=== PATIENT | male | born 1990 | race Caucasian/White ===

== ENCOUNTER 2018-01-02 12:27 | Observation (INO) | payer OTHER ==
[~2018-01-02] VITALS: Ht 167.6 cm; Wt 70.0 kg
[2018-01-02] MEDS ORDERED: FENTANYL CITRATE INJ 50 MCG/1 ML 2 ML VIAL ONE ×2 (12:37→15:18)
[2018-01-02 13:01] LABS: BASO % 0.1 %; BASO ABS # 0.01 K/uL (0-0.2); EOS % 0.7 %; EOS ABS # 0.13 K/uL (0-0.5); HEMATOCRIT 40.1 % (42-52); HEMOGLOBIN 14.2 g/dL (14.0-18.0); IG# 0.08 K/uL (0.00-0.02); LYMPH % 9.5 %; LYMPH ABS # 1.79 K/uL (1.2-3.4); MEAN CELL VOLUME 87.2 fL (80-100); MEAN CORPUSCULAR HEMOGLOBIN 30.9 pg (25-34); MEAN CORPUSCULAR HGB CONC 35.4 g/dl (32-36); MEAN PLATELET VOLUME 11.3 fL (7.4-10.4); MONO % 1.5 %; MONO ABS # 0.28 K/uL (0.11-0.59); NEUT % 87.8 %; NEUT ABS # 16.52 K/uL (1.4-6.5); PLATELET COUNT 240 K/uL (130-400); RED CELL DISTRIBUTION WIDTH CV 12.6 % (11.5-14.5); RED CELL DISTRIBUTION WIDTH SD 40.5 fL (36.4-46.3); WHITE BLOOD COUNT 18.81 K/uL (4.8-10.8)
--- NOTE | 2018-01-02 13:06 | DIAGNOSTIC IMAGING REPORT ---
R TIBIA/FIBULA 2 VIEWS ROUTINE CLINICAL HISTORY: Right lower leg pain COMPARISON: None. DISCUSSION: There is a comminuted fracture involving the distal one third of the fibula. There is 9 mm of maximal fracture fragment distraction. There is disruption of the ankle mortise with medial ankle mortise widening. Tiny avulsion fragments are visualized the level of the medial malleolus. IMPRESSION: 1. Comminuted fracture involving the distal one third of the fibula 2. Widening of the medial ankle mortise 3. Tiny chip/avulsion fragments adjacent to the medial malleolus Electronically signed by: Kj Leslie M.D. 01/02/2018 1:05 PM Dictated Date/Time: 01/02/2018 1:03 PM
--- NOTE | 2018-01-02 13:06 | DIAGNOSTIC IMAGING REPORT ---
R ANKLE MIN 3 VIEWS ROUTINE CLINICAL HISTORY: 27 years-old Male presenting with R ANKLE PAIN . TECHNIQUE: Frontal, mortise, and lateral views of the right ankle were obtained. COMPARISON: None. FINDINGS: Spiral fracture of the distal fibular metaphysis above the level of the syndesmosis. There is less than one half shaft width lateral displacement of the distal fracture fragment. There is also mild apex anterior angulation. There is widening of the syndesmosis as well as the medial clear space. A small ossific fragment is noted on lateral view projecting over the anterior ankle mortise. A small avulsion fracture fragment is difficult to exclude. There is also calcification along the medial clear space that may represent tiny ossific fragments. No advanced degenerative change. Diffuse soft tissue swelling greatest over the medial malleolus. IMPRESSION: Mildly displaced and angulated Guevara C fibular fracture (pronation external rotation stage III or stage IV injury) with medial ligamentous rupture. No evidence of a medial malleolus or posterior malleolus fracture. Posterior ligamentous injury cannot be excluded. Electronically signed by: Asa Mcgowan M.D. 01/02/2018 1:05 PM Dictated Date/Time: 01/02/2018 1:00 PM
--- NOTE | 2018-01-02 13:08 | DIAGNOSTIC IMAGING REPORT ---
R FOOT MIN 3 VIEWS ROUTINE CLINICAL HISTORY: R FOOT DISLOCATION COMPARISON: None. DISCUSSION: The foot specifically shows no evidence for acute bony pathology. There is comminuted fracture the distal fibula. Ankle mortise appears disrupted. There is no evidence for soft tissue swelling. IMPRESSION: 1. No acute process specifically of the foot. 2. Probable ankle dislocation and distal fibular fracture. The above report was generated using voice recognition software. It may contain grammatical, syntax or spelling errors. Electronically signed by: Feliberto Jacobsen M.D. 01/02/2018 1:07 PM Dictated Date/Time: 01/02/2018 1:06 PM
[2018-01-02 13:24] LABS: ALBUMIN 4.3 gm/dl (3.4-5.0); CALCIUM 8.9 mg/dl (8.5-10.1); CREATININE 1.44 mg/dl (0.60-1.40); POTASSIUM 3.3 mmol/L (3.5-5.1)
[2018-01-02 13:27] LABS: TOTAL PROTEIN 7.6 gm/dl (6.4-8.2)
[2018-01-02] MEDS ORDERED: MoRPHine SULFATE 4 MG/ML 1 ML CARP\\VIAL IV STA (14:18)
[2018-01-02] MEDS ORDERED: MIDAZOLAM HCL 1 MG/ML 2ML VIAL ONE (14:58)
[2018-01-02] MEDS ORDERED: SODIUM CHLORIDE 0.9% 1000ML 1,000 ML IV STA (14:58)
[2018-01-02 14:59] VITALS: O2SAT 99
[2018-01-02] MEDS ORDERED: ONDANSETRON INJ 2 MG/ML 2 ML VIAL IV PRN ×3 (15:00→17:15)
[2018-01-02] MEDS ORDERED: BUPIVACAINE/EPINEPHRINE 0.5% MPF 1:200,000 30 ML VIAL ONE (15:17)
[2018-01-02] MEDS ORDERED: EpHEDrine SULFATE INJ 50 MG/ML AMP IV PRN (15:30)
[2018-01-02] MEDS ORDERED: CLINDAMYCIN IV 900 MG in DEXTROSE 5% 100ML 100 ML IV SCH (15:30)
[2018-01-02] MEDS ORDERED: ATROPINE SULFATE 0.1 MG/ML 5ML SYR IV PRN (15:30)
[2018-01-02] MEDS ORDERED: HYDROmorphone INJ 1 MG/ML SYR IV PRN (15:30)
[2018-01-02] MEDS ORDERED: IV FLUIDS COMPLETED PRN ×2 (15:45→18:15)
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
[2018-01-02] MEDS ORDERED: HYDROmorphone INJ 2 MG/ML SYR/VIAL ONE (15:51)
[2018-01-02] MEDS ORDERED: ROCURONIUM BROMIDE 10 MG/ML 5 ML VIAL ONE (16:10)
[2018-01-02] MEDS ORDERED: PROPOFOL IV EMULSION 10 MG/ML 20 ML VIAL ONE ×2 (16:10→16:58)
[2018-01-02] MEDS ORDERED: SUCCINYLCHOLINE CHLORIDE 20 MG/ML 10 ML VIAL IV ONE (16:10)
[2018-01-02] MEDS ORDERED: DEXAMETHASONE SOD INJ 4 MG/ML VIAL ONE (16:10)
[2018-01-02] MEDS ORDERED: LIDOCAINE HCL 2% 2 ML VIAL (20MG/ML) ONE (16:10)
[2018-01-02] MEDS ORDERED: ONDANSETRON INJ 2 MG/ML 2 ML VIAL ONE (16:10)
[2018-01-02] MEDS ORDERED: BUPIVACAINE/EPINEPHRINE 0.5% MPF 1:200,000 10 ML VIAL INJ ONE (17:03)
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
--- NOTE | 2018-01-02 17:06 | [facility] Post Operative Brief Note ---
Immediate Operative Summary Operative Date January 02, 2018. Pre-Operative Diagnosis Subluxated Right Ankle Fracture Dislocation Post-Operative Diagnosis Subluxated Right Ankle Fracture Dislocation Procedure(s) Performed Open Reduction Internal Fixation Right Ankle Fracture Surgeon Dr. Martinez Controls Technician Surgeon(s) YESSICA Camargo Estimated Blood Loss 1 ml Findings Consistent with Post-Op Diagnosis Specimens none per surgeon Drains None Anesthesia Type General Complication(s) none Disposition Accompanied Pt To Recover: no Overlapping Procedure I was immediately available: during the entire case
--- NOTE | 2018-01-02 17:08 | [facility] Operative Report ---
Operative Report Operative Date January 02, 2018. Pre-Operative Diagnosis Subluxated Right Ankle Fracture Dislocation Post-Operative Diagnosis Subluxated Right Ankle Fracture Dislocation Procedure(s) Performed Open Reduction Internal Fixation Right Ankle Fracture Surgeon Dr. Martinez [place] Surgeon(s) YESSICA Camargo Estimated Blood Loss 1 ml Specimens none per surgeon Drains None Anesthesia Type General Complication(s) none Disposition no Description of Procedure I was present during entire case . Please see Dr. Martinez procedure note for specifics. I attest to the content of the Intraoperative Record and any orders documented therein. Any exceptions are noted below.
[2018-01-02] MEDS ORDERED: VANCOMYCIN IV 0 MG in SODIUM CHLORIDE 0.9% 500ML 500 ML IV SCH (17:15)
[2018-01-02] MEDS ORDERED: NO NSAIDS SCH (17:15)
[2018-01-02] MEDS ORDERED: MAGNESIUM HYDROXIDE SUSP 30 ML UDC PO PRN (17:15)
[2018-01-02] MEDS ORDERED: ALUMINUM/MAGNESIUM/SIMETH (MAALOX MAX) 30 ML UDC PO PRN (17:15)
[2018-01-02] MEDS ORDERED: VANCOMYCIN CONSULT ACTIVE PRN (17:15)
[2018-01-02] MEDS ORDERED: DiphenhydrAMINE HCL 50 MG/ML VIAL IV PRN (17:15)
[2018-01-02] MEDS ORDERED: METOCLOPRAMIDE HCL INJ 5 MG/ML 2 ML VIAL IV PRN (17:15)
--- NOTE | 2018-01-02 17:19 | Discharge Instructions ---
Discharge Instructions Date of Service January 02, 2018. Admission Reason for Admission: R Ankle Pain, Dislocation, Deformity Discharge Discharge Diagnosis / Problem: Right ankle fracture/dislocation Discharge Goals Goal(s): Decrease discomfort, Improve function, Increase independence Activity Recommendations Activity Limitations: as noted below Lifting Limitations: until after follow-up appointment Exercise/Sports Limitations: until after follow-up appointment May Resume Sexual Activity: when tolerated Shower/Bathe: tomorrow, keep incision dry Driving or Machine Use: No driving until cleared by orthpedic specialist Weightbearing Status: Right non-weightbearing (Crutches for ambulatory aide) . Instructions / Follow-Up Instructions / Follow-Up DIET: * Resume previous diet. MEDICATIONS: * Please take your prescriptions as instructed at your pre-op appointment and/ or see medication discharge instructions listed above. * If concerns develop, call your physician's office at . SPECIAL CARE INSTRUCTIONS: * Ice/Elevate as instructed. * Keep dressing clean, dry, intact. * Your surgical extremity may be discolored due to prepping agents used on the skin. A bluish-green tint is a normal variant and should not cause alarm. Call your doctor at [phone] if: * Temperature above 101 degrees * Pain not relieved by pain medicine ordered * There is increased drainage or redness from any incision * You have any unanswered questions, problems or concerns. FOLLOW UP VISIT: * If not already scheduled, please call the office at to schedule a follow-up appointment. Current Hospital Diet Patient's current hospital diet: Regular Diet Discharge Diet Recommended Diet: Regular Diet Procedures Procedures Performed: Open Reduction Internal Fixation Right Ankle Fracture Pending Studies Studies pending at discharge: no Medical Emergencies . Who to Call and When: Medical Emergencies: If at any time you feel your situation is an emergency, please call 911 immediately. . Non-Emergent Contact Non-Emergency issues call your: Primary Care Provider Call Non-Emergent contact if: you have a fever, temperature is above 101.5, your pain is not controlled, your pain is worsening, wound has increased drainage, you have any medication questions . "Provider Documentation" section prepared by Ray Gould. . [place] Drug Monitoring Program Search Results: patient reviewed within database, no issues identified, see additional documentation
--- NOTE | 2018-01-02 17:19 | DIAGNOSTIC IMAGING REPORT ---
R ANKLE MIN 3 VIEWS ROUTINE HISTORY: 27 years-old Male ANKLE ORIF status post ORIF of the right ankle COMPARISON: Right ankle radiographs of same day at 12:39 PM TECHNIQUE: 3 spot fluoroscopic images of the right ankle were obtained utilizing 35.0 seconds of fluoroscopy time FINDINGS: Status post ORIF changes of the ankle with placement of a large lateral plate with fixation screws involving the distal fibula. There is improved alignment of the comminuted fibular fracture. Angle screw of the distal tibial fibular syndesmosis from a lateral approach is noted with decreased widening about the medial clear space. Expected postsurgical soft tissue swelling and deep tissue air. IMPRESSION: Improved alignment status post ORIF of the left ankle. Please see operative report for further details. The above report was generated using voice recognition software. It may contain grammatical, syntax or spelling errors. Electronically signed by: Javed Huerta M.D. 01/02/2018 5:18 PM Dictated Date/Time: 01/02/2018 5:16 PM
[2018-01-02] MEDS: FENTANYL CITRATE INJ 50 MCG/1 ML 2 ML VIAL IV PRN ×4 (17:28→17:43)
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
--- NOTE | 2018-01-02 18:05 | Anesthesiology Progress Note ---
Anesthesia Post Op Note Date & Time January 02, 2018 at 18:05 Vital Signs Pain Intensity: 3 Vital Signs Past 12 Hours Date Time Temp Pulse Resp B/P (MAP) Pulse Ox O2 Delivery O2 Flow Rate FiO2 01/02/18 18:00 89 16 131/94 100 Nasal Cannula 3 01/02/18 17:50 77 16 148/83 98 Nasal Cannula 3 01/02/18 17:40 89 16 133/85 97 Nasal Cannula 3 01/02/18 17:30 93 18 142/88 98 Nasal Cannula 3 01/02/18 17:22 36.3 91 18 151/97 98 Oxymask 5 01/02/18 14:59 104 14 128/73 99 Room Air 01/02/18 14:28 98 18 138/86 97 01/02/18 12:42 127 01/02/18 12:40 123 18 155/89 100 Room Air 01/02/18 12:33 37.3 119 20 96 Room Air Notes Mental Status: alert / awake / arousable, participated in evaluation Pt Amnestic to Procedure: Yes Nausea / Vomiting: adequately controlled Pain: adequately controlled Airway Patency, RR, SpO2: stable & adequate BP & HR: stable & adequate Hydration State: stable & adequate Anesthetic Complications: no major complications apparent
[2018-01-02 18:20] VITALS: BP 139/83; PULSE 85; TEMP 36.9; O2SAT 95; Ht 167.6 cm; Wt 70.0 kg
[2018-01-02 18:50] VITALS: BP 141/83; PULSE 76; TEMP 36.9; O2SAT 95
[2018-01-02] MEDS: OXYCODONE HCL IR 5 MG TAB (IMMEDIATE RELEASE) PO PRN (19:10)
[2018-01-02] MEDS: D5W AND 1/2NSS + 20MEQ KCL 1,000 ML IV SCH (19:17)
[2018-01-02 19:20] VITALS: BP 123/81; PULSE 62; TEMP 36.9; O2SAT 98
[2018-01-02] MEDS: DOCUSATE SODIUM 100 MG CAP PO SCH (20:44)
[2018-01-02] MEDS: ASPIRIN 325 MG ECTAB PO SCH (20:44)
--- NOTE | 2018-01-02 20:47 | PROGRESS NOTE ---
DATE: 01/02/2018 Postoperative check status post open reduction internal fixation of unstable ankle fracture dislocation Paola Servin. Patient is sitting up in bed comfortably. Denies any progressive numbness or tingling. He states his foot feels like it did before which was numb on the dorsum of the foot. He notes he has ability to actively move his toes in both flexion and extension with no excessive pain. He denies any nausea, vomiting, chest pain, shortness of breath, fever or chills. He is requesting to smoke cigarettes. I have advised him that that is not something that he should do in the face of healing. He states he will do his best. Vital signs are stable. He is afebrile. Neurovascular check is at his baseline with decreased sensation on the dorsum of the foot. He did have entrapment of the nerve in the fracture site which was released and decompressed without any issue. The nerve is still dysfunctional. His wound dressing is clean, dry and intact. In anticipation of getting tight, it was split anteriorly and then resealed with an Emil bandage and Coban. He has good active and passive extension and flexion of his toes limited by stiffness and swelling but no pain with passive stretch. There is no sign of compartment syndrome. He is voiding. He is requesting to go to the bathroom. He was watched going to the bathroom with a walker, nonweightbearing. ASSESSMENT AND PLAN: Overall doing well. Advised that he should not sign out AMA, he wanted to sign out. He needs IV antibiotics and needs to have ice and elevation and we will get him discharged tomorrow after he has demonstrated safe PT and OT. Will seal his splint additionally tomorrow with some larger Coban. He will follow up in the office in 1 week for cast application. He was advised that he needs to have a syndesmosis screw taken out before he begins weightbearing and he should not weightbear for at least 10 weeks. He states he understands.
[2018-01-02] MEDS: MoRPHine SULFATE 4 MG/ML 1 ML CARP\\VIAL IV PRN (20:53)
[2018-01-02] MEDS ORDERED: SENNA 8.6 MG TAB PO SCH (21:00)
[2018-01-02 21:18] VITALS: BP 125/73; PULSE 78; O2SAT 100
[2018-01-02] MEDS: ACETAMINOPHEN 500 MG TAB PO SCH (21:52)
[2018-01-02 23:09] VITALS: BP 136/86; PULSE 96; TEMP 36.7; O2SAT 97
[2018-01-03] MEDS: OXYCODONE HCL IR 5 MG TAB (IMMEDIATE RELEASE) PO PRN (00:01)
[2018-01-03] MEDS: MoRPHine SULFATE 4 MG/ML 1 ML CARP\\VIAL IV PRN ×2 (01:57→08:26)
[2018-01-03 02:50] VITALS: BP 122/67; PULSE 72; TEMP 37.3; O2SAT 94
[2018-01-03] MEDS ORDERED: VANCOMYCIN IV 1,000 MG in SODIUM CHLORIDE 0.9% 250ML 250 ML IV SCH (04:00)
[2018-01-03] MEDS: D5W AND 1/2NSS + 20MEQ KCL 1,000 ML IV SCH (04:49)
[2018-01-03] MEDS: ACETAMINOPHEN 500 MG TAB PO SCH (06:28)
[2018-01-03 07:12] VITALS: BP 101/62; PULSE 67; TEMP 36.8; O2SAT 97
[2018-01-03 07:22] LABS: HEMATOCRIT 40.9 % (42-52); HEMOGLOBIN 14.3 g/dL (14.0-18.0); MEAN CORPUSCULAR HEMOGLOBIN 30.8 pg (25-34); MEAN PLATELET VOLUME 11.3 fL (7.4-10.4); PLATELET COUNT 249 K/uL (130-400); RED CELL DISTRIBUTION WIDTH CV 12.6 % (11.5-14.5); RED CELL DISTRIBUTION WIDTH SD 40.4 fL (36.4-46.3); WHITE BLOOD COUNT 16.22 K/uL (4.8-10.8)
--- NOTE | 2018-01-03 07:40 | PROGRESS NOTE ---
DATE: 01/03/2018 SUBJECTIVE: Postop day number 1 status post ORIF of a Guevara C fracture and dislocation, right ankle. At this point in time, he notes that his numbness is without change, it has been there since the injury. OBJECTIVE: Exam, a detailed exam today reveals intact EHL, FHL, EDC, LONG-TERM. He has protective sensation over the whole foot area of numbness that has sensation of feeling, but just does not quite feel as acute. He has no compartment syndrome. He has no pain with passive stretch. His pulse is in the 70s and he is resting comfortably. Vital signs are stable, he is afebrile. Neurovascular check as noted above. Wound dressing is clean, dry, and intact. Reinforced with fishnet and Coban. ASSESSMENT: Doing well. PLAN: Plan at this point in time is to discontinue his IV, discontinue his vancomycin, and switch to one oral dose of Levaquin prior to discharge and have him discharged after PT this morning. He is to be strict nonweightbearing. He states he understands. He states he knows where to return for followup in 2 weeks at our office for staple removal and cast application. He knows he needs to remain nonweightbearing.
--- NOTE | 2018-01-03 07:52 | DISCHARGE SUMMARY ---
CHIEF COMPLAINT: Right ankle pain. HISTORY OF PRESENT ILLNESS: The patient sustained a highly unstable, markedly comminuted Guevara C fracture dislocation, closed injury of his right lower extremity, underwent emergent ORIF. His hospital course has been uneventful. He has tolerated the procedure well. He has no new findings. He had decreased sensation throughout his foot on the dorsal side, this is baseline. It has not increased. He is now moving his toes better. He does not have any marked swelling. The dressing is not tight. Capillary refill is brisk. Swelling of the toes has markedly diminished. Vital signs are stable, he is afebrile. There is no evidence of compartment syndrome on exam. He has no pain with passive stretch, and he is not tachycardic. PAST MEDICAL HISTORY: Negative. PAST SURGICAL HISTORY: Negative. REVIEW OF SYSTEMS: Noncontributory. SOCIAL HISTORY: Reveals that he is unmarried. He is unemployed at present. He admits to tobacco, alcohol, and recreational drug use. He was advised not to do any of this to minimize his risk for nonhealing. He understands that this is a complicated fracture. He was also informed that the nerve where he was normal in his foot was also trapped in the fracture injury. At present, he can move around with a walker nonweightbearing, with no difficulty. ASSESSMENT: Overall doing well. Plan is to discharge today after PT/OT. Discontinue last dose of IV vancomycin, given 1 dose of oral Levaquin to expedite his discharge. Follow up with us in 2 weeks for staple removal. He knows he is to remain nonweightbearing. He will use aspirin 325 daily for DVT prophylaxis.
--- NOTE | 2018-01-03 07:53 | Anesthesiology Progress Note ---
Anesthesia Post Op Note Date & Time January 03, 2018 at 07:53 Vital Signs Pain Intensity: 9.0 Vital Signs Past 12 Hours Date Time Temp Pulse Resp B/P (MAP) Pulse Ox O2 Delivery O2 Flow Rate FiO2 01/03/18 07:12 36.8 67 16 101/62 (75) 97 Room Air 01/03/18 02:50 37.3 72 14 122/67 (85) 94 Room Air 01/03/18 00:15 Room Air 01/02/18 23:09 36.7 96 16 136/86 (103) 97 Room Air 01/02/18 21:18 78 18 125/73 (90) 100 Notes Mental Status: alert / awake / arousable, participated in evaluation Pt Amnestic to Procedure: Yes Nausea / Vomiting: adequately controlled Pain: adequately controlled Airway Patency, RR, SpO2: stable & adequate BP & HR: stable & adequate Hydration State: stable & adequate Anesthetic Complications: no major complications apparent
[2018-01-03 08:19] LABS: CALCIUM 8.8 mg/dl (8.5-10.1); CREATININE 1.17 mg/dl (0.60-1.40); POTASSIUM 4.1 mmol/L (3.5-5.1)
[2018-01-03] MEDS: DOCUSATE SODIUM 100 MG CAP PO SCH (08:30)
[2018-01-03] MEDS ORDERED: OXYC-57 PO (08:30)
[2018-01-03] MEDS: ASPIRIN 325 MG ECTAB PO SCH (08:30)
[2018-01-03] MEDS ORDERED: ASPECOTC PO (08:30)
[2018-01-03] MEDS ORDERED: MULTIVITAMIN TAB PO SCH (09:00)
[2018-01-03] MEDS ORDERED: PANTOprazole SOD 40 MG TAB PO SCH (09:00)
[2018-01-03 09:23] VITALS: BP 101/62; PULSE 67; TEMP 36.8; O2SAT 97
[2018-01-03] MEDS ORDERED: LEVOFLOXACIN 500 MG TAB PO SCH (11:00)
== END 2018-01-03 09:40 | disposition home or self-care (01) ==
LOC: C.EDB 12:27 → C.MSN 17:16 → ENRESERV 18:01
PROVIDERS: ADMIT Physical Medicine & Rehabilitation Sports Medicine; ATTEND Physical Medicine & Rehabilitation Sports Medicine
DX: S82.451A Displaced comminuted fracture of shaft of right fibula, initial encounter for closed fracture (principal); V18.0XXA Pedal cycle driver injured in noncollision transport accident in nontraffic accident, initial encounter; F12.10 Cannabis abuse, uncomplicated; F14.10 Cocaine abuse, uncomplicated; F17.200 Nicotine dependence, unspecified, uncomplicated; Z88.0 Allergy status to penicillin; Z91.030 Bee allergy status

== ENCOUNTER → 2018-04-08 | Day surgery (SDC) | payer OTHER ==
[2018-03-31 08:07] VITALS: Ht 167.6 cm; Wt 71.8 kg
[~2018-04-08] VITALS: Ht 167.6 cm; Wt 71.8 kg
[~2018-04-08] MED LIST: ATROPINE SULFATE 0.1 MG/ML 5ML SYR IV PRN; BUPIVACAINE 0.5 % 5 MG/1 ML PF 10ML VIAL ONE; CLINDAMYCIN PHOS 150 MG/ML 2 ML VIAL IV SCH; CLR10 PO; EpHEDrine SULFATE INJ 50 MG/ML AMP IV PRN; FENTANYL CITRATE INJ 50 MCG/1 ML 2 ML VIAL IV PRN; FENTANYL CITRATE INJ 50 MCG/1 ML 2 ML VIAL ONE; IBUP-1450 PO; LACTATED RINGER'S 1000ML 1,000 ML IV SCH; MIDAZOLAM HCL 1 MG/ML 2ML VIAL ONE; ONDANSETRON INJ 2 MG/ML 2 ML VIAL IV PRN; PROPOFOL IV EMULSION 10 MG/ML 20 ML VIAL ONE; SODIUM CHLORIDE 0.9% 1000ML 1,000 ML IV SCH
--- NOTE | 2018-04-08 06:52 | Discharge Instructions ---
Discharge Instructions Date of Service Apr 08, 2018. Visit Reason for Visit: Right Ankle Retained Hardware Discharge Discharge Diagnosis / Problem: same Discharge Goals Goal(s): Decrease discomfort, Improve function Medications Stopped Medications Name(s): na Restart Stopped Medication(s): use scripts as directed Activity Recommendations Activity Limitations: as noted below Lifting Limitations: gradually increase as tolerated, until after follow-up appointment Exercise/Sports Limitations: until after follow-up appointment May Resume Sexual Activity: when tolerated Shower/Bathe: keep incision dry Driving or Machine Use: resume 1 day after discharge Weightbearing Status: Right weightbearing (as tolerated) Anesthesia . Post Anesthesia Instructions: If you have had General Anesthesia or IV Sedation: * Do not drive today. * Resume driving when surgeon permits. * Do not make important decisions or sign legal documents today. * Call surgeon for: 1. Temperature elevations greater than 101 degrees F. 2. Uncontrollable pain. 3. Excessive bleeding. 4. Persistent nausea and vomiting. 5. Medication intolerance (nausea, vomiting or rash). * For nausea and vomiting use only clear liquids such as: tea, soda, bouillon until nausea subsides, then gradually increase diet as tolerated. * If you have any concerns or questions, call your surgeon's office. If physician is unavailable and it is an emergency, call 911 or go to the nearest emergency room. . Instructions / Follow-Up Instructions / Follow-Up DIET: * Resume previous diet. MEDICATIONS: * Please take your prescriptions as instructed at your pre-op appointment and/ or see medication discharge instructions listed above. * If concerns develop, call your physician's office at . SPECIAL CARE INSTRUCTIONS: * Ice/Elevate as instructed. * Keep dressing clean, dry, intact. * Your surgical extremity may be discolored due to prepping agents used on the skin. A bluish-green tint is a normal variant and should not cause alarm. Call your doctor at [phone] if: * Temperature above 101 degrees * Pain not relieved by pain medicine ordered * There is increased drainage or redness from any incision * You have any unanswered questions, problems or concerns. FOLLOW UP VISIT: * If not already scheduled, please call the office at to schedule a follow-up appointment. Diet Recommendations Recommended Home Diet: resume previous diet Procedures Procedures Performed: see op note Pending Studies Studies pending at discharge: no Medical Emergencies . Who to Call and When: Medical Emergencies: If at any time you feel your situation is an emergency, please call 911 immediately. . Non-Emergent Contact Non-Emergency issues call your: Specialist Call Non-Emergent contact if: temperature is above 101.5, wound has increased drainage, wound has increased redness . . "Provider Documentation" section prepared by Son Martinez. .
--- NOTE | 2018-04-08 10:14 | History & Physical Bridge Note ---
H&P Re-Evaluation Bridge Note: I have examined the patient, reviewed the History & Physical and in the interval since the performance of the History & Physical I have noted the following changes of clinical significance: consent obtained.No changes noted
--- NOTE | 2018-04-08 10:15 | Discharge Instructions ---
Discharge Instructions Date of Service Apr 08, 2018. Visit Reason for Visit: Right Ankle Retained Hardware Discharge Discharge Diagnosis / Problem: same Discharge Goals Goal(s): Improve function Medications Stopped Medications Name(s): na Restart Stopped Medication(s): use all scripts as directed Activity Recommendations Activity Limitations: as noted below Lifting Limitations: until after follow-up appointment Exercise/Sports Limitations: until after follow-up appointment May Resume Sexual Activity: when tolerated Shower/Bathe: keep incision dry Driving or Machine Use: no limitations Weightbearing Status: Right non-weightbearing Anesthesia . Post Anesthesia Instructions: If you have had General Anesthesia or IV Sedation: * Do not drive today. * Resume driving when surgeon permits. * Do not make important decisions or sign legal documents today. * Call surgeon for: 1. Temperature elevations greater than 101 degrees F. 2. Uncontrollable pain. 3. Excessive bleeding. 4. Persistent nausea and vomiting. 5. Medication intolerance (nausea, vomiting or rash). * For nausea and vomiting use only clear liquids such as: tea, soda, bouillon until nausea subsides, then gradually increase diet as tolerated. * If you have any concerns or questions, call your surgeon's office. If physician is unavailable and it is an emergency, call 911 or go to the nearest emergency room. . Instructions / Follow-Up Instructions / Follow-Up DIET: * Resume previous diet. MEDICATIONS: * Please take your prescriptions as instructed at your pre-op appointment and/ or see medication discharge instructions listed above. * If concerns develop, call your physician's office at . SPECIAL CARE INSTRUCTIONS: * Ice/Elevate as instructed. * Keep dressing clean, dry, intact. * Your surgical extremity may be discolored due to prepping agents used on the skin. A bluish-green tint is a normal variant and should not cause alarm. Call your doctor at [phone] if: * Temperature above 101 degrees * Pain not relieved by pain medicine ordered * There is increased drainage or redness from any incision * You have any unanswered questions, problems or concerns. FOLLOW UP VISIT: * If not already scheduled, please call the office at to schedule a follow-up appointment. Diet Recommendations Recommended Home Diet: resume previous diet Procedures Procedures Performed: see op note Pending Studies Studies pending at discharge: no Medical Emergencies . Who to Call and When: Medical Emergencies: If at any time you feel your situation is an emergency, please call 911 immediately. . Non-Emergent Contact Non-Emergency issues call your: Specialist Call Non-Emergent contact if: temperature is above 101.5, wound has increased drainage, wound has increased redness, wound has increased pain . . "Provider Documentation" section prepared by Son Martinez. .
--- NOTE | 2018-04-08 12:36 | [facility] Post Operative Brief Note ---
Immediate Operative Summary Operative Date Apr 08, 2018. Pre-Operative Diagnosis RIGHT ANKLE RETAINED HARDWARE Post-Operative Diagnosis SAME PREOP Procedure(s) Performed Right Ankle Syndesmosis Screw Removal Surgeon DR. Radha VALDEZ Otr Truck Driver Surgeon(s) SILVA ANDERSEN PA-C Estimated Blood Loss TRACE Findings Consistent with Post-Op Diagnosis Fluids (cc crystalloids) 700cc Specimens NONE Drains None Anesthesia Type MAC Complication(s) none Disposition Accompanied Pt To Recover: no Overlapping Procedure I was immediately available: during the entire case
[2018-04-08 12:43] VITALS: TEMP 36.3
--- NOTE | 2018-04-08 12:48 | [facility] Operative Report ---
Operative Report Operative Date Apr 08, 2018. Pre-Operative Diagnosis RIGHT ANKLE RETAINED HARDWARE Post-Operative Diagnosis Right ankle SAME PREOP Procedure(s) Performed Right Ankle Syndesmosis Screw Removal Surgeon DR. Radha VALDEZ Plastic Extruding Machine Operator Surgeon(s) ROLAN ANDERSEN PA-C Estimated Blood Loss TRACE Findings Retained syndesmosis screw right ankle Fluids 700cc Specimens NONE Drains None Anesthesia Type MAC Complication(s) none Disposition no Indications This 27-year-old white male presented to the office with a retained syndesmosis screw after previous ORIF of his ankle fracture. He is now ready for the screw to be removed. No complaints at this point. No new injury. Radiographic imaging has been obtained. Description of Procedure Patient was taken to the operating room where he was given local anesthesia and sedation. He was prepped and draped in usual sterile fashion. Please see Dr. Valdez's operative report for specifics of the procedure. I was present for the entire case from initial patient positioning through final wound closure. Assistance was provided in patient with hemostasis, and final wound closure. Patient was taken to phase 2 recovery in satisfactory condition. I attest to the content of the Intraoperative Record and any orders documented therein. Any exceptions are noted below.
--- NOTE | 2018-04-08 13:03 | Anesthesia Progress Nt - [facility] ---
Anesthesia Post Op Note Date & Time Apr 08, 2018 at 13:02 Vital Signs Pain Intensity: 0 Vital Signs Past 12 Hours Date Time Temp Pulse Resp B/P (MAP) Pulse Ox O2 Delivery O2 Flow Rate FiO2 04/08/18 12:43 36.3 57 16 91/57 (68) 97 Room Air 04/08/18 10:44 36.4 59 16 111/60 (77) 96 Room Air Notes Mental Status: alert / awake / arousable, participated in evaluation Pt Amnestic to Procedure: Yes Nausea / Vomiting: adequately controlled Pain: adequately controlled Airway Patency, RR, SpO2: stable & adequate BP & HR: stable & adequate Hydration State: stable & adequate Anesthetic Complications: no major complications apparent
--- NOTE | 2018-04-08 13:05 | OPERATIVE REPORT ---
DATE OF OPERATION: 04/08/2018 SURGEON: Son Martinez MD. GUIDE DOMESTIC TOUR: Javier Muñoz PA-C. No resident or fellow available. PREOPERATIVE DIAGNOSIS: Retained syndesmosis screw, status post open reduction internal fixation fracture dislocation, right ankle. POSTOPERATIVE DIAGNOSIS: Retained syndesmosis screw, status post open reduction internal fixation fracture dislocation, right ankle. OPERATION PERFORMED: Removal of syndesmosis screw, right ankle under local and sedation. PERIOPERATIVE SITUATION: Medically cleared male who has ankle fracture dislocation that was treated with open reduction internal fixation of the syndesmosis screw. At this point in time, he is ready for surgical removal of the screw. DESCRIPTION OF PROCEDURE: The patient appropriately identified, site verified, consent verified, and clindamycin confirmed has been given. The right lower extremity was anesthetized with about 8 mL of 0.5% plain Marcaine. The wound was then prepped and draped in usual routine fashion. Fluoroscopic control was then utilized to locate the screw. This area was then incised under fluoroscopic control and blunt dissection carried down to the screw. The screw was then identified and removed without any breakage. The wound was then irrigated and closed with 3-0 plain and 3-0 nylon suture. Appropriate dressing applied. The patient was then fluoroscopically assessed and it was stable in the fluoroscopy. The syndesmosis was stable and was noted to have any fracture issues. The patient was then transferred to the holding area in satisfactory condition having tolerated the procedure well. The estimated blood loss was trace. Crystalloid was roughly 700 mL. He can be weightbearing to tolerance. He can discontinue the boot in 2 weeks. No DVT prophylaxis required. No tourniquet was utilized or applied. I attest to the content of the Intraoperative Record and any orders documented therein. Any exception s are noted below.
[2018-04-08 13:25] VITALS: BP 111/69; PULSE 69; O2SAT 99
== END | disposition home or self-care (01) ==
LOC: X.SURG 09:58
PROVIDERS: ATTEND Physical Medicine & Rehabilitation Sports Medicine
DX: Z47.2 Encounter for removal of internal fixation device (principal); Z88.1 Allergy status to other antibiotic agents; Z91.030 Bee allergy status; F17.200 Nicotine dependence, unspecified, uncomplicated; F12.10 Cannabis abuse, uncomplicated; F14.10 Cocaine abuse, uncomplicated; F16.10 Hallucinogen abuse, uncomplicated